=== PATIENT | female | born 1960 | race Caucasian/White ===

== ENCOUNTER 2018-11-07 10:21 | Day surgery (SDC) | payer OTHER ==
[~2018-11-07 10:21] MED LIST: COZAAR50 MG; METROPOLOL; SINGULAIR 5MG5 MG
== END 2018-11-07 12:45 | disposition home or self-care (01) ==
LOC: AMB-ENDOS 10:21 → CIR.AMB 12:15 → AMB-ENDOS 12:15
DX: K64.1 Second degree hemorrhoids (principal)

== ENCOUNTER 2019-06-25 07:53 | Outpatient (CLI) | payer OTHER | END 2019-06-25 07:55 | disposition home or self-care (01) | LOC: SONOGRAMA 07:53 | DX: E04.1 Nontoxic single thyroid nodule (principal) ==

== ENCOUNTER → 2020-06-24 | Day surgery (SDC) | payer OTHER | END | disposition home or self-care (01) | LOC: ADM 06-20 14:45 → AMB-ENDOS 08:35 → ADM 14:45 | PROVIDERS: ATTEND Colon & Rectal Surgery | DX: K62.89 Other specified diseases of anus and rectum (principal); K64.1 Second degree hemorrhoids; Z20.828 Contact with and (suspected) exposure to other viral communicable diseases ==

== ENCOUNTER 2021-02-15 16:36 | Emergency (ER) | payer OTHER ==
[~2021-02-15] VITALS: Ht 170.2 cm; Wt 85.3 kg
[2021-02-15] MEDS ORDERED: CANDESARTAN CILE8 MG (17:22)
[2021-02-15] MEDS ORDERED: LIPITOR20 MG (17:23)
[2021-02-15] MEDS ORDERED: PROAIR HFA8.5 GM (17:23)
[2021-02-15] MEDS ORDERED: DALIRESP250 MCG (17:23)
[2021-02-15] MEDS ORDERED: ZITHROMAX1 GM PO (19:53)
[2021-02-15] MEDS ORDERED: TUSNEL LIQUID178 ML PO (19:53)
[2021-02-15] MEDS ORDERED: MEDROLPACK PO (19:53)
[2021-02-15] MEDS ORDERED: XOPENEX0.63 MG/3 IH (19:53)
== END 2021-02-15 20:00 | disposition home or self-care (01) ==
LOC: ER 16:36
DX: J06.9 Acute upper respiratory infection, unspecified (principal); B96.0 Mycoplasma pneumoniae [M. pneumoniae] as the cause of diseases classified elsewhere; R06.02 Shortness of breath; Z03.818 Encounter for observation for suspected exposure to other biological agents ruled out

== ENCOUNTER 2025-07-05 10:56 | Outpatient (CLI) | payer OTHER ==
[~2025-07-05 10:56] MED LIST changes: +CANDESARTAN CILE8 MG; +DALIRESP250 MCG; +LIPITOR20 MG; +MEDROLPACK PO; +PROAIR HFA8.5 GM; +TUSNEL LIQUID178 ML PO; +XOPENEX0.63 MG/3 IH; +ZITHROMAX1 GM PO
== END 2025-07-05 10:58 | disposition home or self-care (01) ==
LOC: SONOGRAMA 10:56
PROVIDERS: ATTEND Pathology Anatomic Pathology & Clinical Pathology
DX: D34 Benign neoplasm of thyroid gland (principal); E07.89 Other specified disorders of thyroid; E04.1 Nontoxic single thyroid nodule